=== PATIENT | female | born 1975 | race Caucasian/White ===

== ENCOUNTER 2018-03-23 12:01 | Emergency (ER) | payer SELFPAY ==
[~2018-03-23] VITALS: Ht 162.6 cm; Wt 100.0 kg
[2018-03-23 12:05] VITALS: TEMP 98
[2018-03-23] MEDS ORDERED: PREDNISONE10 MG PO (12:40)
[2018-03-23 13:05] VITALS: BP 151/70; PULSE 91
== END 2018-03-23 13:05 | disposition home or self-care (01) ==
LOC: COL.ER 12:01
DX: L30.9 Dermatitis, unspecified (principal); E11.9 Type 2 diabetes mellitus without complications
CPT/HCPCS: J7512

== ENCOUNTER 2018-04-08 19:33 | Emergency (ER) | payer SELFPAY ==
[~2018-04-08] VITALS: Ht 162.6 cm; Wt 100.0 kg
[~2018-04-08 19:33] MED LIST: PREDNISONE10 MG PO
[2018-04-08 19:47] VITALS: BP 161/86; TEMP 98.8
[2018-04-08 22:15] VITALS: PULSE 99
== END 2018-04-08 22:15 | disposition home or self-care (01) ==
LOC: COL.ER 19:33
DX: S43.401A Unspecified sprain of right shoulder joint, initial encounter (principal); M54.31 Sciatica, right side; E11.9 Type 2 diabetes mellitus without complications; Z88.0 Allergy status to penicillin; Z88.1 Allergy status to other antibiotic agents; W01.0XXA Fall on same level from slipping, tripping and stumbling without subsequent striking against object, initial encounter; Y92.59 Other trade areas as the place of occurrence of the external cause